=== PATIENT | male | born 1940 | race Caucasian/White ===

== ENCOUNTER → 2024-01-18 | Outpatient (CLI) | payer MEDICARE ==
[~2024-01-18] MED LIST: AEC81 PO; AMLO-257 PO; ATOR10 PO; BIOASTIN PO; CHOL500050 PO; FENO130C14 PO; GLIM4TAB36 PO; KRIL500C PO; MAGN400C PO; METF-444 PO; METO25TA6 PO; SACC250C9 PO; SITA25TA5 PO; VALS160T29 PO
== END | disposition home or self-care (01) ==
LOC: SHCH 14:57
PROVIDERS: ATTEND Internal Medicine Cardiovascular Disease
DX: I65.23 Occlusion and stenosis of bilateral carotid arteries (principal); R09.89 Other specified symptoms and signs involving the circulatory and respiratory systems
CPT/HCPCS: 93880

== ENCOUNTER → 2024-12-12 | Outpatient (CLI) | payer MEDICARE ==
[2024-12-12] MEDS: REGADENOSON 0.4 MG/5 ML PF SYG IVP ONE (10:57)
--- NOTE | 2024-12-13 14:43 | HMCSR ---
APPROVED REPORT Height: 5 ft 7in Weight: 155 lbs TEST INDICATIONS CAD The imaging protocol used to acquire images was Rest Tc-99m/stress Tc-99m 1 day Consent: The procedure was explained and understood by the patient. Informerd consent was witnessed Abby Worley RN First, low dose rest was performed then high dose stress. RESTING DATA: The resting ekg shows: NSR Rest SPECT myocardial perfusion imaging was performed in supine position minutes following the intra venous injection of 11 mCi of Tc-99 Sestamibi. Time of rest injection: 09:45: Date: 12/12/2024 PHARMACOLOGIC STRESS: Pharmacologic stress test was performed by injecting regadenoson 0.4 mg IV push followed by the intra venous injection of 30 mCi of Tc-99 Sestamibi. Time of stress injection: 11:20: Date: 12/12/2024 Heart Rate at time of stress injection: 42 bpm. Gated Stress SPECT was performed 60 minutes after stress injection. The images were gated to evaluate regional wall motion and calculate left ventricular ejection fracti on. STRESS DETAILS Reason for Termination: Infusion complete Stress Symptoms: No chest pain or symptoms Max HR Achieved: 70 bpm % of APMHR Achieved: 61 Max Blood Pressure: 181/57 mmHg Stress ECG: NSR LEFT VENTRICLE Size: The left ventricular size is normal. Systolic Function:The left ventricular systolic function is hyperdynamic. Wall Motion: No regional wall motion abnormalities noted. The left ventricular ejection fraction was calculated to be 81%.TID = . LV PERFUSION Fixed inferior wall defect. Subtle, partially reversible lateral wall defect. Conclusion The left ventricular size is normal. The left ventricular systolic function is hyperdynamic. No regional wall motion abnormalities noted. Fixed inferior wall defect. Subtle, partially reversible lateral wall defect. The left ventricular ejection fraction was calculated to be 81%.
== END | disposition home or self-care (01) ==
LOC: RAH 09:02
PROVIDERS: ATTEND Internal Medicine Cardiovascular Disease
DX: I25.10 Atherosclerotic heart disease of native coronary artery without angina pectoris (principal)
CPT/HCPCS: 78452; 93017; J2785; A9500 ×2